=== PATIENT | female | born 1955 | race Caucasian/White ===

== ENCOUNTER → 2016-08-26 | Outpatient (CLI) | payer OTHER ==
[~2016-08-26] MED LIST: CALC600T4 PO; CYAN10005 PO; FLAX1CAP PO; MELO-150 PO; METH750T2 PO; MULT1TAB52 PO; OMEG1CAP6 PO; OXYC1TAB7 PO; RUTI1TAB PO
--- NOTE | 2016-08-26 01:04 | PREOP HP ---
DATE OF SERVICE: 08/29/2016 DICTATED BY: Miguel Angel Michaels RN DATE OF SURGERY: Will be 08/29/2016. HISTORY OF PRESENT ILLNESS: The patient is a pleasant 61-year-old who is having difficulty with low back pain and pain in the right hip and buttock. When she becomes active, she develops pain which radiates into the lateral thigh and knee. There is also some discomfort which can pass down the lateral leg toward the foot. She rates her pain in the lower back as a 6/10. Walking and standing exacerbate her pain. Reclining about 30 degrees helps her. She takes Tylenol and meloxicam and lies down frequently to relieve her pain. She has had physical therapy, which was of no benefit. She does not notice weakness in her lower extremities. PAST MEDICAL HISTORY: Arthritis, cold sores/fever blisters, shingles, tonsillitis. PAST SURGICAL HISTORY: Tonsillectomy in 1962, hysterectomy in 2001, lap tae in 2011. FAMILY HISTORY: Diabetes, heart problems/disease and hypertension. SOCIAL HISTORY: . Exercises weekly. Denies substance abuse. Denies alcohol consumption. Drinks coffee daily. Denies tobacco use. ALLERGIES: No known drug allergies. CURRENT MEDICATIONS: Meloxicam, fish oil, flaxseed, Osteo Bi-Flex Joint Shield ____, calcium, B12, Tylenol. REVIEW OF SYSTEMS: A 12-point review of systems was obtained and is noncontributory except that mentioned above. PHYSICAL EXAMINATION: NEUROSURGERY EXAMINATION: GENERAL APPEARANCE: Alert, pleasant, in no acute distress. HEAD: Normocephalic and atraumatic. SKIN: Warm and dry. MUSCULOSKELETAL: Lumbar paraspinal muscle bulk is normal, restricted range of motion of the lumbar spine, [id number] tenderness in the lower lumbar spine with palpation, normal range of motion of the lower extremities bilaterally. EXTREMITIES: No clubbing, cyanosis, or edema. NEUROLOGIC: Alert and oriented x 3, normal recent and remote memory, strength 5/5 in bilateral lower extremities, sensory was intact to light touch in the lower extremities bilaterally except for decrease in the dorsum of her right foot, reflexes were trace and symmetric in bilateral lower extremities, negative straight leg raising bilaterally, normal gait. IMAGING: Reviewed. I reviewed a lumbar myelogram. There is a ____ grade 1 spondylolisthesis, which is associated with markedly hypertrophic facets and thickened ligamentum flavum. This causes extradural defects and compression of the L5 nerve roots. The problem is worse on the right side. There is severe bilateral neural foraminal narrowing as well, which is worse on the right. This appears to be due to a symmetric posterior disk bulging which extends to the neural foramen on the right side. Additionally, there is a left convexity lumbar scoliosis. ASSESSMENT: 1. Spondylolisthesis, lumbar region. 2. Radiculopathy, lumbar region. 3. Other idiopathic scoliosis, lumbar region. 4. Spinal stenosis, lumbar region. PLAN: I spoke with the patient about treatment options. We discussed steroid injections which she has no interest in. Additionally, we spoke about surgery. In this case, with her significant grade 1 anterolisthesis, a decompression of the lateral recess and foramen would destabilize her. I recommended a wide decompression at L4-L5 combined with an instrumented lumbar fusion. I spoke with her about this. I spoke about the posterior instrumentation and posterolateral fusion. I discussed anterior diskectomy and fusion. We spoke about the risks and expected postoperative course. She understands. She would like to go ahead. We will make the arrangement. SADE KRAUSE MD DR: EVIE/rosalva JOB#: [id number] / [id number]
[2016-08-26 15:49] LABS: BASO % 1 % (0-3); EOS % 2 % (0-3); HEMATOCRIT 44.1 % (36.0-47.0); HEMOGLOBIN 14.8 g/dL (12.0-15.5); LYMPH # 2.1 x10^3/uL (1.0-4.8); LYMPH % 29 % (24-48); MEAN CORPUSCULAR HEMOGLOBIN 30 pg (25-35); MEAN CORPUSCULAR HGB CONC 34 g/dL (31-37); MEAN CORPUSCULAR VOLUME 91 fL (79-100); MONO % 7 % (0-9); NEUT % 62 % (31-73); PLATELET COUNT 288 x10^3/uL (140-400); RED BLOOD COUNT 4.87 x10^6/uL (3.50-5.40); RED CELL DISTRIBUTION WIDTH 13.3 % (11.5-14.5); WHITE BLOOD COUNT 7.3 x10^3/uL (4.0-11.0)
[2016-08-26 16:23] LABS: CALCIUM 9.8 mg/dL (8.5-10.1); CREATININE 0.9 mg/dL (0.6-1.0); GFR 64.1; POTASSIUM 4.1 mmol/L (3.5-5.1); TOTAL BILIRUBIN 0.3 mg/dL (0.2-1.0)
[2016-08-26 16:24] LABS: PROTHROMBIN TIME PATIENT 12.5 SEC (11.7-14.0)
== END | disposition home or self-care (01) ==
LOC: SURGPAT 13:54
PROVIDERS: ATTEND Neurological Surgery
DX: M48.06 Spinal stenosis, lumbar region (principal); M43.16 Spondylolisthesis, lumbar region; M41.86 Other forms of scoliosis, lumbar region
CPT/HCPCS: 36415; 80053; 85027; 85610; 85730; 87641

== ENCOUNTER 2016-08-29 06:03 | Inpatient (IN) | payer OTHER ==
[~2016-08-29] VITALS: Ht 167.6 cm; Wt 86.2 kg
[2016-08-29] VITALS (9 sets, daily range): BP systolic 118–148; BP diastolic 58–81
[~2016-08-29 06:03] MED LIST changes: +BACITRACIN 50,000 UNIT in IV NORMAL SALINE 1000ML BAG 1,000 ML IRR ONE; -METH750T2 PO; -OXYC1TAB7 PO
[2016-08-29] MEDS ORDERED: KETOROLAC 60 MG/2 ML INJ FOR OR. ONE (06:44)
[2016-08-29] MEDS ORDERED: GELATIN SPONGE SIZE 100. ONE (06:44)
[2016-08-29] MEDS ORDERED: BUPIVAC MPF-EPI 0.5%-1:200000 30 ML VIAL. ONE (06:45)
[2016-08-29] MEDS ORDERED: THROMBIN TOPICAL 20,000 UNIT SPRAY.SYRN KIT TP ONE (06:45)
[2016-08-29] MEDS ORDERED: PROCHLORPERAZINE 10 MG/2 ML VIAL. IV PRN (07:00)
[2016-08-29] MEDS ORDERED: fentaNYL PF VIAL 100 MCG/2 ML VIAL IV PRN ×2 (07:00→14:45)
[2016-08-29] MEDS ORDERED: LIDOCAINE 1% 1 ML SYRINGE. ID PRN (07:00)
[2016-08-29] MEDS ORDERED: IV RINGERS,LACTATED 1000ML 1,000 ML IV SCH (07:00)
[2016-08-29] MEDS ORDERED: ONDANSETRON PF 4 MG/2 ML VIAL. IV PRN (07:00)
[2016-08-29] MEDS ORDERED: MORPHINE SULFATE 2 MG/ML DISP.SYRIN. IV PRN (07:00)
[2016-08-29] MEDS ORDERED: REMIFENTANIL 2 MG VIAL. IV ONE (07:32)
[2016-08-29] MEDS ORDERED: fentaNYL PF VIAL 100 MCG/2 ML VIAL ONE (07:32)
[2016-08-29] MEDS ORDERED: PROPOFOL 50 ML IV ONE ×3 (07:32→12:46)
[2016-08-29] MEDS ORDERED: PROPOFOL 20 ML IV ONE (07:32)
[2016-08-29] MEDS ORDERED: 0.9 % SODIUM CHLORIDE 50 ML VIAL. IJ ONE (07:32)
[2016-08-29] MEDS ORDERED: LIDOCAINE 2% 100 MG/5 ML SYRINGE. ONE (07:32)
[2016-08-29] MEDS ORDERED: SUCCINYLCHOLINE 200 MG/10 ML VIAL. ONE (07:32)
--- NOTE | 2016-08-29 08:31 | RAD ---
CT of the lumbar spine without contrast, 08/29/2016: History: Spondylolisthesis, brain lab study Multidetector CT imaging was performed with multiplanar reconstructions produced. The data was transferred to the operating room to aid in the patient's stereotactically guided surgery. The following findings are delineated: 1. There is a mild left convexity lumbar scoliosis. No fracture or destructive bony lesion is seen. 2. At L1-2 there is no significant posterior disc bulge or protrusion. The central spinal canal and neural foramina are well maintained. 3. At L2-3 there is mild posterior disc bulging. The central spinal canal and neural foramina are well maintained. 4. At L3-4 there are moderate degenerative changes involving the facet joints with a vacuum phenomena in the right facet joint. No significant posterior disc bulge or protrusion is seen. The central spinal canal and neural foramina are well maintained. 5. At L4-5 there are severe hypertrophic degenerative changes involving the facet joints. There is an associated grade 1 spondylolisthesis. There is moderate posterior disc bulging, greatest on the right. There are mild marginal spurs. The combination of findings is causing moderate central spinal stenosis with moderately severe foraminal encroachment, worse on the right. 6. At L5-S1 there is a small posterior disc protrusion just to the right of midline. There is borderline narrowing of the thecal sac. The neural foramina are well maintained. 7. Incidental note is made of a small hiatal hernia. Scattered colonic diverticula are present. PQRS Compliance Statement: One or more of the following individualized dose reduction techniques were utilized for this examination: 1. Automated exposure control 2. Adjustment of the mA and/or kV according to patient size 3. Use of iterative reconstruction technique
[2016-08-29] MEDS ORDERED: DESFLURANE > 120 MINUTES IH ONE (08:51)
[2016-08-29] MEDS ORDERED: DEXAMETHASONE SOD PHOS 20 MG/5 ML VIAL. ONE (08:51)
[2016-08-29] MEDS ORDERED: ePHEDrine PF IN SALINE 50 MG/5 ML DISP.SYRIN IV ONE (09:15)
[2016-08-29] MEDS ORDERED: ONDANSETRON PF 4 MG/2 ML VIAL. ONE (10:41)
[2016-08-29] MEDS ORDERED: PHENYLEPHRINE in 0.9% NACL PF 1 MG/10 ML DISP.SYRIN. IV ONE (11:09)
[2016-08-29] MEDS ORDERED: REMIFENTANIL 1 MG VIAL. IV ONE (12:46)
[2016-08-29] MEDS ORDERED: oxyCODONE/APAP 5/325 1 TAB TABLET PO PRN (14:45)
[2016-08-29] MEDS ORDERED: 0.9 % SODIUM CHLORIDE 10 ML DISP.SYRIN. IV PRN (14:45)
[2016-08-29] MEDS ORDERED: diphenhydrAMINE HCL 25 MG CAPSULE PO PRN (14:45)
[2016-08-29] MEDS ORDERED: CALCIUM CARBONATE 500 MG TAB.CHEW PO PRN (14:45)
[2016-08-29] MEDS ORDERED: MAG HYDROX/ALUMINUM HYD/SIMETH 30 ML ORAL.SUSP PO PRN (14:45)
[2016-08-29] MEDS ORDERED: ZOLPIDEM 5 MG TABLET. PO PRN (14:45)
[2016-08-29] MEDS ORDERED: ACETAMINOPHEN 325 MG TABLET. PO PRN (14:45)
[2016-08-29] MEDS ORDERED: diphenhydrAMINE 50 MG/ML VIAL IV PRN (14:45)
[2016-08-29] MEDS: fentaNYL PF VIAL 100 MCG/2 ML VIAL IV PRN ×4 (15:01→16:09)
[2016-08-29] MEDS: HYDROmorphone 2 MG/ML VIAL IV PRN ×3 (16:35→17:03)
[2016-08-29] MEDS: IV DEXTROSE 5 %-0.45 % NACL 1,000 ML IV SCH (18:22)
[2016-08-29] MEDS ORDERED: SCOPOLAMINE 1.5MG PATCH. TD SCH (19:00)
[2016-08-29] MEDS: oxyCODONE/APAP 5/325 1 TAB TABLET PO PRN (21:32)
[2016-08-30] MEDS: IV DEXTROSE 5 %-0.45 % NACL 1,000 ML IV SCH ×2 (00:40→10:40)
[2016-08-30 02:00] VITALS: BP 103/50
[2016-08-30 07:14] VITALS: BP 121/70
[2016-08-30] MEDS: oxyCODONE/APAP 5/325 1 TAB TABLET PO PRN ×2 (09:04→14:10)
--- NOTE | 2016-08-30 09:46 | DISCH ---
DISCHARGE INSTRUCTIONS Condition on Discharge Condition on Discharge: Stable Activity After Discharge Activity Instructions for Disc: Activity as tolerated, Avoid exertion Bathing Instructions: Shower-keep dressing dry Lifting Instructions after Dis: No heavy lifting, No pulling or pushing, Do not lift >10 pounds Driving Instructions after Dis: No driving for 2 weeks Diet after Discharge Additional Diet Restrictions: resume home diet Wound Incision Care Wound/Incision Care: Ice to area for comfort Other wound/incision instructi: may remove dressing in 48 hrs if dry then may shower- no soaking Contacting the after DC Call your doctor for: Concerns you may have Follow-Up Follow up with: Dr. Apple's nurse in 2 weeks [phone] ISIAH VALENTINE OCULAR CARE AIDE August 30, 2016 09:46
[2016-08-30] MEDS ORDERED: OXYC1TAB7 PO (09:48)
[2016-08-30] MEDS ORDERED: METH750T2 PO (09:51)
[2016-08-30] MEDS ORDERED: METHOCARBAMOL 750 MG TABLET PO PRN (10:00)
--- NOTE | 2016-08-30 10:09 | PDOC ---
PROGRESS NOTES Subjective Subjective POD #1 Up in chair feels good back incisional pain, controlled with medication Objective Objective Vital Signs Date Time Temp Pulse Resp B/P (MAP) Pulse Ox O2 Delivery O2 Flow Rate FiO2 08/30/16 09:04 16 Room Air 08/30/16 07:14 98.1 71 121/70 (87) 97 98.1 08/29/16 15:17 10.0 Intake and Output 08/30/16 07:00 Intake Total 3160 ml Output Total 2550 ml Balance 610 ml Intake Oral 510 ml IV Total 2650 ml Output Urine Total 1950 ml Stool Total 0 ml Emesis 500 ml Estimated Blood Loss 100 ml Physical Exam General: Alert, Oriented X3, Cooperative, No acute distress MUSCULOSKELETAL: Other ([place]) Neuro: Normal speech Psych/Mental Status: Mental status NL Skin: Other (dressing dry and intact) Plan Plan of Care may dc home f/u 2 weeks Comment Review of Relevant I have reviewed the following items nancy (where applicable) has been applied. Medications Current Medications Bacitracin 45405 unit/Sodium Chloride 1,000 ml @ 1,000 mls/hr 1X PERIOP ONCE IRR Last administered on 08/29/16 09:35; Start 08/29/16 at 06:00; Stop 08/29/16 at 06:59; Status DC Ondansetron HCl (Zofran) 4 mg PRN Q6HRS PRN IV NAUSEA/VOMITING Last administered on 08/29/16 18:42; Start 08/29/16 at 07:00; Stop 08/30/16 at 06:59; Status DC Fentanyl Citrate (Fentanyl 2ml Vial) 25 mcg PRN Q5MIN PRN IV MILD PAIN; Start 08/29/16 at 07:00; Stop 08/30/16 at 06:59; Status DC Fentanyl Citrate (Fentanyl 2ml Vial) 50 mcg PRN Q5MIN PRN IV MODERATE PAIN Last administered on 08/29/16 16:09; Start 08/29/16 at 07:00; Stop 08/30/16 at 06: 59; Status DC Morphine Sulfate 1 mg PRN Q10MIN PRN IV SEVERE PAIN; Start 08/29/16 at 07:00; Stop 08/30/16 at 06:59; Status DC Lidocaine HCl 2 ml PRN 1X PRN ID PRIOR TO IV START; Start 08/29/16 at 07:00; Stop 08/30/16 at 06:59; Status DC Hydromorphone HCl (Dilaudid) 0.5 mg PRN Q10MIN PRN IV SEV PAIN, Second choice Last administered on 08/29/16 17:03; Start 08/29/16 at 07:00; Stop 08/30/16 at 06: 59; Status DC Prochlorperazine Edisylate (Compazine) 5 mg PACU PRN PRN IV NAUSEA, MRX1; Start 08/29/16 at 07:00; Stop 08/30/16 at 06:59; Status DC Cefazolin Sodium/ Dextrose 50 ml @ 100 mls/hr 1X PREOP PRN IV PRIOR TO PROCEDURE Last administered on 08/29/16 09:16; Start 08/29/16 at 06:00; Stop 08/29 at 18:00; Status DC Gelatin (Gelfoam Size 100) 1 each STK-MED ONCE .ROUTE Last administered on 08/29 09:35; Start 08/29/16 at 06:44; Stop 08/29/16 at 06:52; Status DC Ketorolac Tromethamine (Toradol For Or Only) 60 mg STK-MED ONCE .ROUTE Last administered on 08/29/16 09:35; Start 08/29/16 at 06:44; Stop 08/29/16 at 06:52; Status DC Thrombin 20,000 unit STK-MED ONCE TP Last administered on 08/29/16 09:35; Start 08/29/16 at 06:45; Stop 08/29/16 at 06:52; Status DC Bupivacaine HCl/ Epinephrine Bitart (Sensorcain-Mpf Epi 0.5%-1:[id number]) 30 ml STK -MED ONCE .ROUTE Last administered on 08/29/16 09:35; Start 08/29/16 at 06:45; Stop 08/29/16 at 06:52; Status DC Propofol 50 ml @ As Directed STK-MED ONCE IV ; Start 08/29/16 at 07:32; Stop 08/29 at 07:33; Status DC Propofol 20 ml @ As Directed STK-MED ONCE IV ; Start 08/29/16 at 07:32; Stop 08/29 at 07:33; Status DC Lidocaine HCl (Lidocaine HCl 2% Abboject) 100 mg STK-MED ONCE .ROUTE ; Start 08/29/16 at 07:32; Stop 08/29/16 at 07:33; Status DC Sodium Chloride (Sodium Chloride) 50 ml STK-MED ONCE IJ ; Start 08/29/16 at 07:32 ; Stop 08/29/16 at 07:33; Status DC Fentanyl Citrate (Fentanyl 2ml Vial) 100 mcg STK-MED ONCE .ROUTE ; Start at 07:32; Stop 08/29/16 at 07:33; Status DC Remifentanil HCl (Ultiva) 2 mg STK-MED ONCE IV ; Start 08/29/16 at 07:32; Stop at 07:33; Status DC Succinylcholine Chloride (Anectine) 200 mg STK-MED ONCE .ROUTE ; Start 08/29/16 at 07:32; Stop 08/29/16 at 07:33; Status DC Dexamethasone Sodium Phosphate (Decadron) 20 mg STK-MED ONCE .ROUTE ; Start 08/29 at 08:51; Stop 08/29/16 at 08:52; Status DC Desflurane (Suprane) 90 ml STK-MED ONCE IH ; Start 08/29/16 at 08:51; Stop at 08:52; Status DC Ephedrine Sulfate 50 mg STK-MED ONCE IV ; Start 08/29/16 at 09:15; Stop 08/29/16 at 09:16; Status DC Propofol 50 ml @ As Directed STK-MED ONCE IV ; Start 08/29/16 at 10:18; Stop 08/29 at 10:19; Status DC Ondansetron HCl (Zofran) 4 mg STK-MED ONCE .ROUTE ; Start 08/29/16 at 10:41; Stop 08/29/16 at 10:42; Status DC Phenylephrine HCl 1 mg STK-MED ONCE IV ; Start 08/29/16 at 11:09; Stop 08/29/16 at 11:10; Status DC Propofol 50 ml @ As Directed STK-MED ONCE IV ; Start 08/29/16 at 12:46; Stop 08/29 at 12:47; Status DC Remifentanil HCl (Ultiva) 1 mg STK-MED ONCE IV ; Start 08/29/16 at 12:46; Stop at 12:47; Status DC Cefazolin Sodium/ Dextrose 50 ml @ 100 mls/hr 1X ONCE IV ; Start 08/29/16 at 13 :30; Stop 08/29/16 at 13:59; Status DC Acetaminophen (Tylenol) 650 mg PRN Q6HRS PRN PO MILD PAIN / TEMP; Start at 14:45 Al Hydroxide/Mg Hydroxide (Mylanta Plus Xs) 30 ml PRN Q3HRS PRN PO HEARTBURN / GAS; Start 08/29/16 at 14:45 Calcium Carbonate/ Glycine (Tums) 500 mg PRN Q3HRS PRN PO INDIGESTION; Start at 14:45 Diphenhydramine HCl (Benadryl) 25 mg PRN Q6HRS PRN PO ITCHING Last administered on 08/29/16 21:32; Start 08/29/16 at 14:45 Diphenhydramine HCl (Benadryl) 25 mg PRN Q6HRS PRN IV ITCHING; Start 08/29/16 at 14:45 Zolpidem Tartrate (Ambien) 5 mg PRN QHS PRN PO INSOMNIA, MAY REPEAT IN 1HR; Start 08/29/16 at 14:45 Sodium Chloride (Normal Saline Flush) 3 ml QSHIFT PRN IV AFTER MEDS AND BLOOD DRAWS; Start 08/29/16 at 14:45 Dextrose/Sodium Chloride 1,000 ml @ 100 mls/hr Q10H IV Last administered on 18:22; Start 08/29/16 at 14:40 Oxycodone/ Acetaminophen (Percocet 5/325) 1 tab PRN Q4HRS PRN PO MILD PAIN, 1ST CHOICE Last administered on 08/30/16 09:04; Start 08/29/16 at 14:45 Oxycodone/ Acetaminophen (Percocet 5/325) 2 tab PRN Q4HRS PRN PO MODERATE PAIN , SEVERE PAIN; Start 08/29/16 at 14:45 Cefazolin Sodium 1 gm/Sodium Chloride 50 ml @ 100 mls/hr Q8H IV Last administered on 08/30/16 09:03; Start 08/29/16 at 17:00; Stop 08/30/16 at 09:29; Status DC Fentanyl Citrate (Fentanyl 2ml Vial) 25 mcg PRN Q2HR PRN IV PAIN; Start at 14:45 Scopolamine (Transderm-Scop) 1 patch Q3DAYS TD Last administered on 08/29/16t 19 :00; Start 08/29/16 at 19:00 Methocarbamol (Robaxin) 750 mg PRN TID PRN PO MUSCLE SPASMS; Start 08/30/16 at 10:00 Active Scripts Active Reported Vitamin B-12 (Cyanocobalamin (Vitamin B-12)) 1,000 Mcg Tablet 1,500 Mcg PO Bioflex Tablet (Rutin/Hesp/Bioflav/C/Herb#196) 1 Each Tablet 1 Tab PO DAILY Fish Oil 1,000 Mg Capsule ([place]-3 Fatty Acids/Fish Oil) 1 Each Capsule 1 Each PO DAILY Flax Seed Oil 1,300 Mg Softgel (Flaxseed/Omega3,6,9/Fatty Acid) 1 Each Capsule 1 Cap PO DAILY Multivitamins (Multivitamin) 1 Each Tablet 1 Tab PO DAILY Calcium (Calcium Carbonate) 600 Mg Tablet 1,200 Mg PO DAILY Meloxicam 15 Mg Tablet 15 Mg PO DAILY Vitals/I & O Vital Sign - Last 24 Hours 08/29/16 08/29/16 08/29/16 08/29/16 14:37 14:39 14:54 15:01 Temp 96.9 96.9 Pulse 110 100 Resp 16 16 16 B/P (MAP) 157/77 154/76 Pulse Ox 100 100 100 O2 Delivery Mask Simple Mask Simple Mask Simple Mask O2 Flow Rate 10 10 10 10.0 08/29/16 08/29/16 08/29/16 08/29/16 15:09 15:17 15:24 15:39 Temp 98.6 98.6 Pulse 90 90 88 Resp 16 16 18 18 B/P (MAP) 161/75 160/78 160/77 Pulse Ox 100 100 99 98 O2 Delivery Simple Mask Aerosol Mask Room Air Room Air O2 Flow Rate 10 10.0 08/29/16 08/29/16 08/29/16 08/29/16 15:48 15:57 16:09 16:09 Temp 98.6 98.6 98.6 98.6 Pulse 90 88 Resp 18 18 18 18 B/P (MAP) 149/73 156/79 Pulse Ox 97 96 98 98 O2 Delivery Room Air Room Air Room Air Room Air 08/29/16 08/29/16 08/29/16 08/29/16 16:39 16:47 16:54 17:10 Temp 97.9 97.9 Pulse 85 86 89 Resp 15 16 18 B/P (MAP) 155/69 156/79 148/81 (103) Pulse Ox 94 94 97 O2 Delivery Room Air Room Air Room Air Room Air 08/29/16 08/29/16 08/29/16 08/29/16 17:25 17:36 17:40 17:55 Pulse 91 86 87 Resp 18 16 B/P (MAP) 118/62 (80) 123/77 (92) 122/74 (90) Pulse Ox 96 97 O2 Delivery Room Air Room Air Room Air 08/29/16 08/29/16 08/29/16 08/29/16 18:20 18:50 19:00 20:00 Temp 97.9 98.5 97.9 98.5 Pulse 84 91 87 78 Resp 18 18 18 16 B/P (MAP) 129/71 (90) 126/58 (80) 137/76 (96) 143/74 (97) Pulse Ox 94 95 O2 Delivery Room Air Room Air Room Air Room Air 08/29/16 08/30/16 08/30/16 08/30/16 22:00 02:00 07:14 09:04 Temp 98.4 98.6 98.1 98.4 98.6 98.1 Pulse 76 78 71 Resp 16 14 20 16 B/P (MAP) 124/75 (91) 103/50 (67) 121/70 (87) Pulse Ox 96 96 97 O2 Delivery Room Air Room Air Room Air Room Air Intake and Output 08/29/16 08/29/16 08/30/16 15:00 23:00 07:00 Intake Total 2200 ml 760 ml 200 ml Output Total 1800 ml 750 ml Balance 2200 ml -1040 ml -550 ml ISIAH VALENTINE APRN August 30, 2016 10:09
[2016-08-30 11:38] VITALS: BP 110/68
--- NOTE | 2016-09-02 13:32 | PATHOLOGY ---
PATHOLOGY REPORT * * * * * * * * FINAL DIAGNOSIS: Segments of fibrocartilaginous, fibroadipose, and skeletal muscle tissue and bone, lumbar disc and decompression: - Degenerative changes of fibrocartilaginous tissue. COMMENT: There is no evidence of an acute inflammatory process or malignancy. (JPM:; d/t: 09/02/16) REPORT ELECTRONICALLY SIGNED BY: Juan Jose Nogueira M.D. DATE/TIME: 09/02/2016 13:23 * * * * * * * * GROSS PATHOLOGY: Received in formalin labeled, Vasu Lumbar decompression and disc, are multiple fragments of intervertebral disc, fibroadipose tissue and soft tissue ranging in size from 0.3 to 1.0 cm in greatest dimension. Electro Mechanical Technician sections are submitted in cassette A1. JACIK/aleyda INITIAL CPT CODE(S): A; 91598, 38576 Professional services performed by [facility] [place] [address] Technical services performed by [facility] at [address] [place] [address], [facility] [address] [address]. SPECIMEN(S) RECEIVED: A.Lumbar decompression and disc CLINICAL HISTORY: Lumbar spondylolisthesis, stenosis, radiculopathy, scoliosis PATIENT: ARLIN LANGSTON /AGE: 1002/25/1955 (Age: 61) PATIENT #: [id number] ALT CASE #: SPECIMEN COLLECTION DATE: 08/29/2016 SPECIMEN RECEIVED DATE: 08/30/2016 [facility] - [address] [place] [address] - PHONE: [phone] * * * END OF REPORT * * *
--- NOTE | 2016-09-05 15:51 | PREOP HP ---
DATE OF SERVICE: 08/29/2016 DICTATED BY: Miguel Angel Michaels RN DATE OF SURGERY: Will be 08/29/2016. HISTORY OF PRESENT ILLNESS: The patient is a pleasant 61-year-old who is having difficulty with low back pain and pain in the right hip and buttock. When she becomes active, she develops pain which radiates into the lateral thigh and knee. There is also some discomfort which can pass down the lateral leg toward the foot. She rates her pain in the lower back as a 6/10. Walking and standing exacerbate her pain. Reclining about 30 degrees helps her. She takes Tylenol and meloxicam and lies down frequently to relieve her pain. She has had physical therapy, which was of no benefit. She does not notice weakness in her lower extremities. PAST MEDICAL HISTORY: Arthritis, cold sores/fever blisters, shingles, tonsillitis. PAST SURGICAL HISTORY: Tonsillectomy in 1962, hysterectomy in 2001, lap tae in 2011. FAMILY HISTORY: Diabetes, heart problems/disease and hypertension. SOCIAL HISTORY: . Exercises weekly. Denies substance abuse. Denies alcohol consumption. Drinks coffee daily. Denies tobacco use. ALLERGIES: No known drug allergies. CURRENT MEDICATIONS: Meloxicam, fish oil, flaxseed, Osteo Bi-Flex Joint Shield ____, calcium, B12, Tylenol. REVIEW OF SYSTEMS: A 12-point review of systems was obtained and is noncontributory except that mentioned above. PHYSICAL EXAMINATION: NEUROSURGERY EXAMINATION: GENERAL APPEARANCE: Alert, pleasant, in no acute distress. HEAD: Normocephalic and atraumatic. SKIN: Warm and dry. MUSCULOSKELETAL: Lumbar paraspinal muscle bulk is normal, restricted range of motion of the lumbar spine, [id number] tenderness in the lower lumbar spine with palpation, normal range of motion of the lower extremities bilaterally. EXTREMITIES: No clubbing, cyanosis, or edema. NEUROLOGIC: Alert and oriented x 3, normal recent and remote memory, strength 5/5 in bilateral lower extremities, sensory was intact to light touch in the lower extremities bilaterally except for decrease in the dorsum of her right foot, reflexes were trace and symmetric in bilateral lower extremities, negative straight leg raising bilaterally, normal gait. IMAGING: Reviewed. I reviewed a lumbar myelogram. There is a ____ grade 1 spondylolisthesis, which is associated with markedly hypertrophic facets and thickened ligamentum flavum. This causes extradural defects and compression of the L5 nerve roots. The problem is worse on the right side. There is severe bilateral neural foraminal narrowing as well, which is worse on the right. This appears to be due to a symmetric posterior disk bulging which extends to the neural foramen on the right side. Additionally, there is a left convexity lumbar scoliosis. ASSESSMENT: 1. Spondylolisthesis, lumbar region. 2. Radiculopathy, lumbar region. 3. Other idiopathic scoliosis, lumbar region. 4. Spinal stenosis, lumbar region. PLAN: I spoke with the patient about treatment options. We discussed steroid injections which she has no interest in. Additionally, we spoke about surgery. In this case, with her significant grade 1 anterolisthesis, a decompression of the lateral recess and foramen would destabilize her. I recommended a wide decompression at L4-L5 combined with an instrumented lumbar fusion. I spoke with her about this. I spoke about the posterior instrumentation and posterolateral fusion. I discussed anterior diskectomy and fusion. We spoke about the risks and expected postoperative course. She understands. She would like to go ahead. We will make the arrangement. SADE KRAUSE MD DR: EVIE/rosalva JOB#: [id number] / [id number]
--- NOTE | 2016-09-13 13:31 | OP ---
DATE OF SURGERY: 08/29/2016 PREOPERATIVE DIAGNOSES: Spondylolisthesis, grade 1 with severe foraminal narrowing and lateral recess narrowing, and lumbar radiculopathy. OPERATION PERFORMED: 1. Right hemilaminotomy with transfacet decompression of the right L4 and L5 nerve roots. 2. Posterior instrumentation at L4-L5 with reduction of spondylolisthesis and posterolateral fusion at L4-L5 with allograft and autograft bone. 3. Anterior lumbar discectomy at L4-L5 from a right lateral oblique approach with placement of interbody fusion cage packed with allograft and autograft bone. The operation was done with stimulated EMG monitoring, fluoroscopy, microscopic dissection, and BrainLAB guidance. SURGEON: Zhang Krause M.D. SURVEY INTERVIEWER: SUMAN Wilson, assisted with the decompression, instrumentation, and discectomy and fusion. OPERATIVE INDICATIONS: The patient is a very pleasant 61-year-old woman who developed problems with severe intractable back and right leg pain. On imaging studies, she had right lateral disc bulging and spondylolisthesis at L4-L5 with severe neural foraminal narrowing, and I recommended a decompression both at the L3-L4 and L4-L5 nerve roots combined with posterior instrumentation with some reduction of spondylolisthesis and then an anterior discectomy and fusion with placement of interbody fusion cage. She understood the surgery and the risks. She understood the technique of the operation, and she wished to go ahead. DESCRIPTION OF PROCEDURE: Following general endotracheal anesthesia, the patient was positioned prone on the Edgar table. Her lumbar region was prepped and draped in standard fashion. MAKI hose and AV impulse boots were applied for DVT prophylaxis. The microscope was draped. Fluoroscopy was draped and brought into the field. Monitoring was established. Left iliac pins were placed into the iliac crest on the left side. The BrainLAB system was initialized, and then paramedian incisions were made over the L4-L5 beginning on the left side. I dissected down through the skin and subcutaneous tissue, passed through the muscle layer gently and placed self-retaining retractor. I exposed the pedicles and the lateral masses of L4 and L5. I drilled in the posterior aspect of the pedicles, passed the black ball followed by tap, followed by screw placement. I used the [employer] system was 6.5 screws. These were placed. The fabrice was placed. Nuts were applied, but the system was not torqued. I did excoriate the lateral masses, and at this time, I placed a Jamshidi needle into the left iliac crest and aspirated 20 mL of bone marrow. I mixed this with the allograft bone. I then went to the right side, and after creating an exposure, I brought in the high-speed air drill. I burred down a very generous hemilaminotomy at L4-L5 and then worked laterally and root the foramen by performing a facetectomy/transfacet exposure and fully decompressing both the L4 and L5 nerve roots. I did place pedicle screws in L4 and L5. At this time after excoriating the lateral masses, I saved the bones from the decompression, and I used this to augment the allograft bone, and then this was packed into both lateral gutters after excoriating the lateral masses and lateral facets at L4-L5 bilaterally. I then tilted the table and performed the anterior portion of the operation. Incision was made in the left flank. I passed the BrainLAB down with a guide sleeve and passed down from a lateral approach to dock at the attachment of the pedicle of L5 to the vertebral body. I worked slowly superior to this and then entered into the disc space and placed a K-wire. I was certain that the L4 root was just lateral to me in this location. It was not injured. After the K-wire was placed, I passed from the flank the dilator followed by the working channel which was tapped into position. I then performed a very generous discectomy with endplate scrapers, disc avery, and pituitaries, and as I worked, the entire region became very well decompressed. When this was completed, then I felt that I had an excellent discectomy. I removed the working channel after replacing the dilator and then passed the nerve shield down to enter into the disc space allowing me to protect the far lateral nerve. I packed an interbody fusion cage with allograft and autograft bone measuring 9 mm, and this was gently tapped into position and rotated to the appropriate orientation. I felt that I had excellent positioning of the interbody fusion cage. There was plenty of fusion bone present. I irrigated and then released the cage, and I removed the cage contract technician and the shield. I then rotated it posteriorly and continued with the posterior operation. I torqued the inferior nuts and then gently, brought the screws down superiorly with the shanks to help reduce the spondylolisthesis. She had a left convexity scoliosis, and I distracted appropriately to help minimize this, and then on fluoroscopic images, I felt that I had achieved a good reduction of the spondylolisthesis. The system was then torqued. Following a small amount of compression on the right side to help lock the cage into position. I broke off the shanks at the L4 reduction screws and then irrigated copiously. At this point, then I had good reduction of spondylolisthesis, excellent decompression of nerve root, intact interbody fusion cage, and instrumentation. I again irrigated. I closed the wound then in layers with absorbable suture. The skin was closed with 4-0 subcuticular stitch. The operation went very well, and the patient was taken uneventfully to Recovery Room with normal strength in her lower extremities. I was quite pleased with the surgery. ZHANG KRAUSE MD DR: EVIE/rosalva JOB#: [id number] / [id number] BRIA
--- NOTE | 2016-09-17 23:05 | DS ---
DATE OF DISCHARGE: 08/30/2016 DATE OF SURGERY: 08/29/2016. DISCHARGE DIAGNOSES: Spondylolisthesis grade 1 with severe foraminal narrowing and lateral recess narrowing and lumbar radiculopathy. OPERATION PERFORMED: 1. Right hemilaminotomy with a transfacet decompression of the right L4 and L5 nerve roots. 2. Posterior instrumentation L4-L5 with resection of spondylolisthesis and posterolateral fusion at L4-L5 with allograft and autograft bone. 3. Anterior lumbar diskectomy at L4-L5 from a right lateral oblique approach and placement of interbody fusion cage. HISTORY OF PRESENT ILLNESS: The patient is a pleasant 61-year-old who developed problems with intractable back and right leg pain. On imaging studies, she had a right lateral disk bulge and spondylolisthesis at L4-L5 with severe neural foraminal narrowing. I recommended a decompression combined with a posterior instrumentation and some reduction of spondylolisthesis as well as anterior diskectomy and fusion, and placement of interbody fusion cage. HOSPITAL COURSE: She was admitted to the floor postoperatively where she did well. She was up ambulating in the room and in the halls. Physical therapy was initiated and instruction was given to her regarding her activities. Her pain is well controlled and she is in good condition to discharge home. DISCHARGE MEDICATIONS: She will resume her medications per the [facility]. DISCHARGE INSTRUCTIONS: She was instructed regarding incision care, activity restrictions and expectations for the next several weeks. She will follow up in the office in 2 weeks. She understands to call with any questions or concerns. SADE KRAUSE MD DR: ROLO/rosalva JOB#: [id number] / [id number]
== END 2016-08-30 14:15 | disposition home or self-care (01) | DRG 455 ==
LOC: OPSVCIP 06:03 → 4 SOUTHEST 17:00
PROVIDERS: ADMIT Neurological Surgery; ATTEND Neurological Surgery
PROC: 0SG0071 Fusion of Lumbar Vertebral Joint with Autologous Tissue Substitute, Posterior Approach, Posterior Column, Open Approach (ICD-10-PCS; 2016-08-29)
PROC: 0SB20ZZ Excision of Lumbar Vertebral Disc, Open Approach (ICD-10-PCS; 2016-08-29)
PROC: 01NB0ZZ Release Lumbar Nerve, Open Approach (ICD-10-PCS; 2016-08-29)
PROC: 07DR3ZZ Extraction of Iliac Bone Marrow, Percutaneous Approach (ICD-10-PCS; 2016-08-29)
PROC: 4A1004G Monitoring of Central Nervous Electrical Activity, Intraoperative, Open Approach (ICD-10-PCS; 2016-08-29)
PROC: 0SG00A0 Fusion of Lumbar Vertebral Joint with Interbody Fusion Device, Anterior Approach, Anterior Column, Open Approach (ICD-10-PCS; principal; 2016-08-29 08:30)
DX: M43.16 Spondylolisthesis, lumbar region (principal); M48.06 Spinal stenosis, lumbar region; M41.20 Other idiopathic scoliosis, site unspecified; M54.16 Radiculopathy, lumbar region; M19.90 Unspecified osteoarthritis, unspecified site; M54.5 Low back pain; Z82.49 Family history of ischemic heart disease and other diseases of the circulatory system; Z83.3 Family history of diabetes mellitus; Z90.710 Acquired absence of both cervix and uterus
CPT/HCPCS: 36415; 72131; 76000; 86850; 86900; 86901; 88304; 88311; C1713; J0330; J0690; J1100; J1170; J1885; J2370; J2405; J2704; J3010; J3490; J7030; J7120; Q0163; 97530

== ENCOUNTER → 2016-11-25 | Outpatient (CLI) | payer OTHER ==
[~2016-11-25] MED LIST changes: -BACITRACIN 50,000 UNIT in IV NORMAL SALINE 1000ML BAG 1,000 ML IRR ONE; -MELO-150 PO; +MELO15TA23 PO; +METH750T2 PO; +OXYC1TAB7 PO
--- NOTE | 2016-11-25 13:23 | RAD ---
Lumbar radiograph 2 view 11/25/2016 Clinical indication: Follow-up lumbar spine surgery fusion. Comparison: 04/05/[address] 08/29/2016. Findings: Interval posterior instrumented L4-L5 with interbody spacer device. There is grade 1 anterolisthesis L4 on L5. There is S-type thoracolumbar spinal curvature. Vertebral body heights are maintained. Right upper quadrant cholecystectomy clips. Impression: Interval L4-L5 posterior spinal fixation and interbody spacer.
== END | disposition home or self-care (01) ==
LOC: RAD 12:57
PROVIDERS: ATTEND Neurological Surgery
DX: M43.26 Fusion of spine, lumbar region (principal)
CPT/HCPCS: 72100